=== PATIENT | female | born 1990 | race Caucasian/White ===

== ENCOUNTER 2020-12-18 20:50 | Emergency (ER) | payer OTHER, MEDICAID ==
[~2020-12-18] VITALS: Ht 157.5 cm; Wt 97.3 kg
[2020-12-18] MEDS ORDERED: IV NORMAL SALINE 1000ML BAG 1,000 ML IV ONE (21:45)
[2020-12-18 22:12] LABS: BASO # 0.1 x10^3/uL (0.0-0.2); BASO % 1 % (0-3); EOS # 0.1 x10^3/uL (0.0-0.7); EOS % 1 % (0-3); HEMATOCRIT 37.2 % (36.0-47.0); HEMOGLOBIN 12.5 g/dL (12.0-15.5); LYMPH # 2.6 x10^3/uL (1.0-4.8); LYMPH % 30 % (24-48); MEAN CORPUSCULAR HEMOGLOBIN 31 pg (25-35); MEAN CORPUSCULAR HGB CONC 34 g/dL (31-37); MEAN CORPUSCULAR VOLUME 93 fL (79-100); MONO # 0.8 x10^3/uL (0.0-1.1); MONO % 9 % (0-9); NEUT # 5.1 x10^3/uL (1.8-7.7); NEUT % 59 % (31-73); PLATELET COUNT 292 x10^3/uL (140-400); WHITE BLOOD COUNT 8.7 x10^3/uL (4.0-11.0)
[2020-12-18 22:15] LABS: BILIRUBIN,URINE NEGATIVE (NEG); CLARITY,URINE CLEAR; COLOR,URINE YELLOW; NITRITE,URINE NEGATIVE (NEG); PROTEIN,URINE NEGATIVE (NEG-TRACE)
[2020-12-18 22:22] LABS: BACTERIA,URINE FEW /HPF (0-FEW); RBC,URINE TNTC /HPF (0-2)
[2020-12-18 22:26] LABS: CALCIUM 9.1 mg/dL (8.5-10.1); CREATININE 0.5 mg/dL (0.6-1.0); GFR 146.9; POTASSIUM 3.9 mmol/L (3.5-5.1)
[2020-12-18 22:36] LABS: ALBUMIN 3.3 g/dL (3.4-5.0); TOTAL BILIRUBIN 0.2 mg/dL (0.2-1.0); TOTAL PROTEIN 6.6 g/dL (6.4-8.2)
[2020-12-18] MEDS ORDERED: CONTRAST GIVEN. MC PRN (22:45)
[2020-12-18] MEDS ORDERED: IOHEXOL 300 MG/ML 100ML VIAL. IV ONE (23:00)
[2020-12-18] MEDS ORDERED: MORPHINE SULFATE 4 MG/ML VIAL. IV ONE (23:00)
--- NOTE | 2020-12-18 23:08 | RAD ---
CT scan of the abdomen and pelvis with contrast 12/18/2020 CLINICAL HISTORY: Abdominal pain. Nausea and vomiting. TECHNIQUE: After the intravenous administration of 75 cc of Isovue-370 only, contiguous, 5 mm axial s ections were obtained through the abdomen and pelvis. One or more of the following individualized dose reduction techniques were utilized for this study: 1. Automated exposure control. 2. Adjustment of the mA and/or kV according to patient size. 3. Use of iterative reconstruction technique. FINDINGS: Images through the lung bases are within normal limits. The liver, spleen, pancreas, adrenal glands and right kidney are within normal limits. A 2 mm nonobst ructing calculus is seen involving the superior/midpole the left kidney. The abdominal aorta tapers normally. Surgical clips are seen within the gallbladder fossa consistent with cholecystectomy. The patient is post gastric bypass procedure. No free fluid or free air is seen within the abdomen. There is no evidence of bowel obstruction. The appendix is not visualized. No in flammatory changes are seen surrounding the cecum. Images through the pelvis demonstrate the urinary bladder to be contracted. No adnexal mass is seen. No free fluid is seen. Minimal S-shaped curvature of the thoracolumbar spine is noted. IMPRESSION: No acute abnormality is seen. Electronically signed by: Kulwant Alves MD (12/18/2020 11:06 PM) [id number]
[2020-12-18] MEDS ORDERED: HYDR-2761 PO (23:47)
[2020-12-18] MEDS ORDERED: TAMS0.4C97 PO (23:47)
--- NOTE | 2020-12-18 23:48 | PHYS DOC ---
Past Medical History Past Medical History: Anxiety, Schizophrenia Past Surgical History: Cholecystectomy, Tonsillectomy, Other Additional Past Surgical Histo: bariatric surgery Smoking Status: Current Every Day Smoker Additional Information: 0.5ppd Alcohol Use: None General Adult EDM: Chief Complaint: ABDOMINAL PAIN HPI: HPI: Patient is a 30 year old presents to the emergency department complaining of a sudden onset of left-sided abdominal pain that started at 8 PM tonight. Patient denies nausea, however states she vomited twice because of the pain. Patient currently rates her abdominal pain at 8/10 on a 1-10 pain scale. Patient states this pain radiates over to her right flank area. Patient also reports intermittent chest pain with exhalation that she rates a 6/10 pain. Patient states she had 1 bout of diarrhea at noon. Patient reports seeing food particl es with her vomitus. Patient states she took 2 Tylenol prior to arrival that did not help. Patient reports taking anxiety medications, schizophrenia medications, and depression medications. Patient reports a past surgical history of urinary stents placed in the right approximately 5 years ago, ga llbladder removal in 2016, TNA and 2013, gastric bypass 2 years ago. Patient currently denies chest pain, shortness of breath, cough, congestion, fever or chills at home. Patient states that she has already had the COVID-19 virus and does not wish to be checked for the COVID-19 virus today. Patient denies having a COVID-19 virus vaccination, states she had a flu vaccination in 2019. Review of Systems: Review of Systems: 14 body systems of review of systems have been reviewed. See HPI for pertinent positives and negative responses, otherwise all other systems are negative, nonpertinent or noncontributory. Heart Score: HEART Score for Chest Pain: HEART Score for Chest Pain Response (Comments) Value History Slighlty/Non-Suspicious 0 ECG Normal 0 Age < 45 0 Risk Factors No Risk Factors 0 Troponin < Normal Limit 0 Total 0 Risk Factors: Risk Factors: DM, Current or recent (<one month) smoker, HTN, HLP, family history of CAD, obesity. Risk Scores: Score 0 - 3: 2.5% MACE over next 6 weeks - Discharge Home Score 4 - 6: 20.3% MACE over next 6 weeks - Admit for Clinical Observation Score 7 - 10: 72.7% MACE over next 6 weeks - Early Invasive Strategies Family History: Family History: Patient denies any cardiac history or significant family health history Current Medications: Patient reports taking 40 mg of Paxil every morning, Invega daily, 50 mg Vistaril for anxiety nightly. Current Medications Medications (Trade) Dose Ordered Sig/Bethany Start Time Stop Time Status Last Admin Dose Admin Info (CONTRAST GIVEN -- Rx MONITORING) 1 each PRN DAILY PRN 12/18/20 22:45 12/20/20 22:44 Iohexol (Omnipaque 300 Mg/ml) 75 ml 1X ONCE 12/18/20 23:00 12/18/20 23:01 DC 12/18/20 22:45 75 ML Morphine Sulfate (Morphine Sulfate) 4 mg 1X ONCE 12/18/20 23:00 12/18/20 23:01 DC 12/18/20 22:50 4 MG Sodium Chloride 1,000 ml @ 1,000 mls/hr 1X ONCE 12/18/20 21:45 12/18/20 22:44 DC 12/18/20 22:06 1,000 MLS/HR Allergies: Allergies: Allergies Coded Allergies Type Severity Reaction Last Updated Verified codeine Allergy Severe anaphylaxis 12/18/20 Yes NSAIDS (Non-Steroidal Anti-Inflamma Allergy Intermediate hives, swelling lips 12/18/20 Yes Physical Exam: PE: Constitutional: Well developed, well nourished, no acute distress, non-toxic appearance. [] HENT: Normocephalic, atraumatic, bilateral external ears normal, oropharynx moist, no oral exudates, nose normal. [] Eyes: PERRLA, EOMI, conjunctiva normal, no discharge. [] Neck: Normal range of motion, no tenderness, supple, no stridor. [] Cardiovascular:Heart rate regular rhythm, no murmur [] Lungs & Thorax: Bilateral breath sounds clear to auscultation [] Abdomen: Bowel sounds normal, soft, no tenderness, no masses, no pulsatile masses. [] Skin: Warm, dry, no erythema, no rash. [] Back: No tenderness, no CVA tenderness. [] Extremities: No tenderness, no cyanosis, no clubbing, ROM intact, no edema. [] Neurologic: Alert and oriented X 3, normal motor function, normal sensory function, no focal deficits noted. [] Psychologic: Affect normal, judgement normal, mood normal. [] Current Patient Data: Labs: Laboratory Tests Test 12/18/20 22:00 12/18/20 22:05 12/18/20 22:09 Urine Collection Type Unknown Urine Color Yellow Urine Clarity Clear Urine pH 7.0 (<5.0-8.0) Urine Specific [place] >=1.030 (1.000-1.030) Urine Protein Negative mg/dL (NEG-TRACE) Urine Glucose (UA) Negative mg/dL (NEG) Urine Ketones (Stick) Negative mg/dL (NEG) Urine Blood Large (NEG) Urine Nitrite Negative (NEG) Urine Bilirubin Negative (NEG) Urine Urobilinogen Dipstick 1.0 mg/dL (0.2 mg/dL) Urine Leukocyte Esterase Small (NEG) Urine RBC Tntc /HPF (0-2) Urine WBC 5-10 /HPF (0-4) Urine Squamous Epithelial Cells Mod /LPF Urine Bacteria Few /HPF (0-FEW) Urine Mucus Slight /LPF White Blood Count 8.7 x10^3/uL (4.0-11.0) Red Blood Count 4.00 x10^6/uL (3.50-5.40) Hemoglobin 12.5 g/dL (12.0-15.5) Hematocrit 37.2 % (36.0-47.0) Mean Corpuscular Volume 93 fL (79-100) Mean Corpuscular Hemoglobin 31 pg (25-35) Mean Corpuscular Hemoglobin Concent 34 g/dL (31-37) Red Cell Distribution Width 13.0 % (11.5-14.5) Platelet Count 292 x10^3/uL (140-400) Neutrophils (%) (Auto) 59 % (31-73) Lymphocytes (%) (Auto) 30 % (24-48) Monocytes (%) (Auto) 9 % (0-9) Eosinophils (%) (Auto) 1 % (0-3) Basophils (%) (Auto) 1 % (0-3) Neutrophils # (Auto) 5.1 x10^3/uL (1.8-7.7) Lymphocytes # (Auto) 2.6 x10^3/uL (1.0-4.8) Monocytes # (Auto) 0.8 x10^3/uL (0.0-1.1) Eosinophils # (Auto) 0.1 x10^3/uL (0.0-0.7) Basophils # (Auto) 0.1 x10^3/uL (0.0-0.2) Sodium Level 143 mmol/L (136-145) Potassium Level 3.9 mmol/L (3.5-5.1) Chloride Level 106 mmol/L (98-107) Carbon Dioxide Level 29 mmol/L (21-32) Anion Gap 8 (6-14) Blood Urea Nitrogen 9 mg/dL (7-20) Creatinine 0.5 mg/dL (0.6-1.0) L Estimated GFR (Cockcroft-Gault) 146.9 BUN/Creatinine Ratio 18 (6-20) Glucose Level 89 mg/dL (70-99) Calcium Level 9.1 mg/dL (8.5-10.1) Total Bilirubin 0.2 mg/dL (0.2-1.0) Aspartate Amino Transferase (AST) 12 U/L (15-37) L Alanine Aminotransferase (ALT) 23 U/L (14-59) Alkaline Phosphatase 87 U/L (46-116) Troponin I Quantitative < 0.017 ng/mL (0.000-0.055) Total Protein 6.6 g/dL (6.4-8.2) Albumin 3.3 g/dL (3.4-5.0) L Albumin/Globulin Ratio 1.0 (1.0-1.7) Lipase 60 U/L (73-393) L POC Urine HCG, Qualitative Hcg negative (Negative) Laboratory Tests 12/18/20 22:05 Laboratory Tests 12/18/20 22:05 Vital Signs: Vital Signs Date Time Temp Pulse Resp B/P (MAP) Pulse Ox O2 Delivery O2 Flow Rate FiO2 12/18/20 22:50 16 97 12/18/20 21:05 98.2 66 158/116 (130) Room Air 98.2 EKG: EKG: EKG performed at 2101 by ED nursing staff, heart rate 58 bpm without ectopy, RI interval 0.120, QTc interval 0.392, no acute STEMI, no ACS, no acute ischemia appreciated, EKG interpreted by ED attending physician Dr. Escobar Radiology/Procedures: Radiology/Procedures: PATIENT: JUAN LUCERO ACCOUNT: [id number] : 1990 LOCATION: ER AGE: 30 SEX: F EXAM STATUS: REG ER ORD. PHYSICIAN: CIRA VELAZQUEZ APRN REASON: ABDOMINAL PAIN PROCEDURE: CT ABD PELV W/ IV CONTRST ONLY CT scan of the abdomen and pelvis with contrast 12/18/2020 CLINICAL HISTORY: Abdominal pain. Nausea and vomiting. TECHNIQUE: After the intravenous administration of 75 cc of Isovue-370 only, contiguous, 5 mm axial sections were obtained through the abdomen and pelvis. One or more of the following individualized dose reduction techniques were utilized for this study: 1. Automated exposure control. 2. Adjustment of the mA and/or kV according to patient size. 3. Use of iterative reconstruction technique. FINDINGS: Images through the lung bases are within normal limits. The liver, spleen, pancreas, adrenal glands and right kidney are within normal limits. A 2 mm nonobstructing calculus is seen involving the superior/midpole the left kidney. The abdominal aorta tapers normally. Surgical clips are seen within the gallbladder fossa consistent with cholecystectomy. The patient is post gastric bypass procedure. No free fluid or free air is seen within the abdomen. There is no evidence of bowel obstruction. The appendix is not visualized. No inflammatory changes are seen surrounding the cecum. Images through the pelvis demonstrate the urinary bladder to be contracted. No adnexal mass is seen. No free fluid is seen. Minimal S-shaped curvature of the thoracolumbar spine is noted. IMPRESSION: No acute abnormality is seen. Electronically signed by: Kulwant Alves MD (12/18/2020 11:06 PM) [id number] DICTATED and SIGNED BY: KULWANT ALVES MD DATE: 12/18/20 [id number] 0 Course & Med Decision Making: Course & Med Decision Making Pertinent Labs and Imaging studies reviewed. (See chart for details) 30-year-old female, vital signs reviewed, presents emergency department complaining of sudden onset abdominal pain with vomiting x2 and 1 bout of diarrhea started approximately 1800 today. Patient also had intermittent chest pain. ER work-up to rule out cardiopulmonary process along with acute abdominal process. Patient's urine was not infected, however showed blood in urine, concerning for possible kidney stone. Pending CT abdomen pelvis with IV contrast at this time. All other labs were equivocal or not concerning. CT abdomen pelvis with IV contrast read by house radiologist interpretation, shows 2 mm stone in the right ureter. Discussed findings with patient, patient states that she has had kidney stone in the past it was much larger. Discussed starting on Flomax medication will give prescription for pain medication at home. Patient states she will follow-up with her physician when she reaches home. 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 Patient gave verbal understanding of discharge home instructions, follow-up primary care, follow-up with urology if needed, return to ER precautions and concerns, was discharged home without incident. Dragon Disclaimer: Dragon Disclaimer: This electronic medical record was generated, in whole or in part, using a voice recognition dictation system. Departure Departure Impression: Primary Impression: Kidney stone Disposition: 01 DC HOME SELF CARE/HOMELESS Condition: GOOD Referrals: UNKNOWN PCP NAME (PCP) Patient Instructions: Diet for Kidney Stones, Kidney Stones Additional Instructions: Take medications as prescribed, follow-up with your primary care for ongoing pain, follow-up with your urologist if the stone has not passed soon, return to the emergency department for worsening symptoms or other concerns. EMERGENCY DEPARTMENT GENERAL DISCHARGE INSTRUCTIONS Thank you for coming to [facility] Emergency Department (ED) today and trusting us with you care. We trust that you had a positive experience in our Emergency Department. If you wish to speak to the department management, you may call the Director at [phone]. YOUR FOLLOW UP INSTRUCTIONS ARE FOLLOWS: 1. Do you have a private Doctor? If you do not have a private doctor, please ask for a resource list of physicians or clinics that may be able to assist you with follow up care. 2. The Emergency Physicain has interpreted your x-rays. The X-Ray specialist will also review them. If there is a change in the findings, you will be notified in 48 hours when at all possible. 3. A lab test or culture has been done, your results will be reviewed and you will be notified if you need a change in treatment. ADDITIONAL INSTRUCTIONS AND INFORMATION: 1. Your care today has been supervised by a physician who is specially trained in emergency care. Many problems require more than one evaluation for a complete diagnosis and treatment. We recommend that you schedule your follow up appointment as recommended to ensure complete treatment of you illness or injury. If you are unable to obtain follow up care and continue to have a problem, or if your condition worsens, we recommend that you return to the ED. 2. We are not able to safely determine your condition over the phone nor are we able to give sound medical advice over the phone. For these safety reasons, if you call for medical advice we will ask you to come to the ED for further evaluation. 3. If you have any questions regarding these discharge instructions please call the ED at [phone]. SAFETY INFORMATION: In the interest of safety, wellness, and injury prevention; we encourage you to wear your sealbelt, if you smoke; quite smoking, and we encourage family to use a protective helmet for bicycling and other sporting events that present an increased risk for head injury. IF YOUR SYMPTOMS WORSEN OR NEW SYMPTOMS DEVELOP, OR YOU HAVE CONCERNS ABOUT YOUR CONDITION; OR IF YOUR CONDITION WORSENS WHILE YOU ARE WAITING FOR YOUR FOLLOW UP APPOINTMENT; EITHER CONTACT YOUR PRIMARY CARE DOCTOR, THE PHYSICIAN WHOSE NAME AND NUMBER YOU WERE GIVEN, OR RETURN TO THE ED IMMEDIATELY. Scripts Hydrocodone Bit/Acetaminophen (HYDROCODONE-APAP 5-325 ) 1 Tab Tablet 1 TAB PO PRN Q6HRS PRN for PAIN, #15 TAB 0 Refills Prov: CIRA VELAZQUEZ APRN 12/18/20 Tamsulosin Hcl (FLOMAX) 0.4 Mg Cap.er.24h 0.4 MG PO DAILY for 10 Days, #10 TAB 0 Refills TAKE 30 MINUTES AFTER SAME MEAL ONCE DAILY. Prov: CIRA VELAZQUEZ APRN 12/18/20 CIRA VELAZQUEZ APRN Dec 18, 2020 23:48
[2020-12-19 00:01] VITALS: BP 147/87
--- NOTE | 2020-12-19 04:59 | EKG ---
[facility] [address] [place] [address] Test Date: 2020-12-18 Test Time: 21:01:16 Pat Name: JUAN LUCERO Department: Room: Gender: F Community Director: : 1990 Requested By: CIRA VELAZQUEZ Order Number: [id number] Reading MD: Measurements Intervals [place] Rate: 58 P: 21 VT: 120 QRS: 25 QRSD: 78 T: 7 QT: 396 QTc: 392 Interpretive Statements SINUS RHYTHM NORMAL ECG RI6.01 No previous ECG available for comparison
== END 2020-12-19 00:01 | disposition home or self-care (01) ==
LOC: ER 20:50
DX: N20.0 Calculus of kidney (principal); F20.9 Schizophrenia, unspecified; F17.200 Nicotine dependence, unspecified, uncomplicated; Z90.49 Acquired absence of other specified parts of digestive tract; Z98.84 Bariatric surgery status; Z88.5 Allergy status to narcotic agent; Z88.6 Allergy status to analgesic agent
CPT/HCPCS: 36415; 74177; 80053; 81001; 81025; 83690; 84484; 85025; 87086; 93005; 96361; 96374; 99285; J2270; J7030; Q9967